=== PATIENT | female | born 1970 | race Hispanic/Latino ===

== ENCOUNTER 2020-01-16 08:50 | Day surgery (SDC) | payer BC ==
[2020-01-16] VITALS (14 sets, daily range): BP systolic 114–162; BP diastolic 63–85
[~2020-01-16] VITALS: Ht 157.5 cm; Wt 104.3 kg
[~2020-01-16 08:50] MED LIST: ESOM40CA54 PO; SODIUM CHLORIDE 0.9% 1000ML 1,000 ML IV ONE
[2020-01-16] MEDS ORDERED: IOHEXOL-350 50ML VIAL IV ONE (10:20)
[2020-01-16] MEDS ORDERED: INDOMETHACIN 50 MG SUPP.RECT RC SCH (10:30)
[2020-01-16] MEDS ORDERED: PROPOFOL 1000 MG/100 ML 100 ML IV ONE (10:44)
[2020-01-16] MEDS ORDERED: SUCCINYLCHOLINE 200MG/10ML SYR ONE (10:48)
[2020-01-16] MEDS ORDERED: MIDAZOLAM HCL 1 MG/ML 2ML VIAL ONE (11:15)
--- NOTE | 2020-01-16 12:13 | NUR ---
Update Dr. Dexter spoke with the patient in PACU bed 11 prior to me taking over her care in PACU bed 14. He then came to continue speaking with her. Dr. Thompson and Donte Price CRNA also arrived to speak with the patient. Patient stated to them that she could hear voices but was unable to distinguish words or move and did experience discomfort during the procedure.
== END 2020-01-16 12:38 | disposition home or self-care (01) ==
LOC: DAH 08:50
PROVIDERS: ATTEND Internal Medicine
DX: Z46.59 Encounter for fitting and adjustment of other gastrointestinal appliance and device (principal); Z11.59 Encounter for screening for other viral diseases; K83.2 Perforation of bile duct; K21.9 Gastro-esophageal reflux disease without esophagitis; E66.9 Obesity, unspecified; Z68.41 Body mass index [BMI] 40.0-44.9, adult; Z79.899 Other long term (current) drug therapy; Z98.890 Other specified postprocedural states; Z90.49 Acquired absence of other specified parts of digestive tract; Z80.0 Family history of malignant neoplasm of digestive organs; Z72.89 Other problems related to lifestyle; Z82.49 Family history of ischemic heart disease and other diseases of the circulatory system; Z83.3 Family history of diabetes mellitus
CPT/HCPCS: 36415; 43264; 43275; 74328; 87635; A4215; A4221; A4222; A4223; A4606; A4657 ×2; A4663; C1769; C1773; J0330; J2250; J2704; J7030; Q9967; 43200; 74330